=== PATIENT | female | born 1975 | race Caucasian/White ===

== ENCOUNTER 2017-02-18 15:38 | Inpatient (IN) | payer BC, OTHER ==
[~2017-02-18] VITALS: Ht 149.9 cm; Wt 50.8 kg
--- NOTE | 2017-02-18 19:57 | NUR ---
PRE-ADMISSION 41 year old female client in intake office admitted for medically supervised ETOH withdrawals. Pt brought into the office via wheelchair. Pt is intoxicated and states she drank 750ml of Vodka 40 minutes prior to coming to our setting. Denies medical hx, denies seizure hx, denies home medications. Pt states "I do not feel well, I am just very drunk." V/S are as follows, 97.9, 134/75, 112 heart rate, RR 20, SpO2 is 95% room air. Pt looks disheveled, but is able to answer questions. Will be monitored by night nurse.
[2017-02-18 20:00] VITALS: BP 134/75
[2017-02-18 20:13] VITALS: BP 134/75
[2017-02-18] MEDS ORDERED: DICYCLOMINE HCL 20 MG TABLET PO PRN (20:15)
[2017-02-18] MEDS ORDERED: ACETAMINOPHEN 325 MG TABLET PO PRN (20:15)
[2017-02-18] MEDS ORDERED: THIAMINE HCL 200 MG/2 ML VIAL IM ONE (20:15)
[2017-02-18] MEDS ORDERED: ONDANSETRON 4 MG/2 ML VIAL IM PRN (20:15)
[2017-02-18] MEDS ORDERED: MAG HYDROX/AL HYDROX/SIMETH 30 ML LIQUID UDC PO PRN (20:15)
[2017-02-18] MEDS ORDERED: LORAZEPAM 1 MG TABLET PO PRN ×2 (20:15)
[2017-02-18] MEDS ORDERED: LORAZEPAM 2 MG/1 ML VIAL IM PRN (20:15)
[2017-02-18] MEDS ORDERED: diphenhydrAMINE 50 MG CAPSULE PO PRN (20:15)
[2017-02-18] MEDS ORDERED: LOPERAMIDE HCL 2 MG CAPSULE PO PRN ×2 (20:15)
[2017-02-18] MEDS ORDERED: MAGNESIUM HYDROXIDE 30 ML LIQUID UDC PO PRN (20:15)
[2017-02-18] MEDS ORDERED: MIRALAX 17 GM POWD.PACK PO PRN (20:15)
[2017-02-18] MEDS ORDERED: CLONIDINE HCL 0.1 MG TABLET PO PRN (20:30)
[2017-02-18 20:47] LABS: BASOPHILS % (AUTO) 0.5 % (0.0-2.0); EOSINOPHILS % (AUTO) 0.3 % (0.0-7.0); HEMATOCRIT 43.3 % (37-47); HEMOGLOBIN 14.6 G/DL (12.0-16.0); LYMPHOCYTES # (AUTO) 1.8 K/UL (0.8-4.8); LYMPHOCYTES % (AUTO) 18.8 % (20.5-51.5); MEAN CORPUSCULAR HEMOGLOBIN 31.4 UUG (27.0-31.0); MEAN CORPUSCULAR HGB CONC 34 g/dL (32.0-37.0); MEAN CORPUSCULAR VOLUME 93.3 FL (81.0-99.0); MONOCYTES # (AUTO) 0.6 K/UL (0.1-1.30); MONOCYTES % (AUTO) 6.4 % (0.0-11.0); NEUTROPHILS # (AUTO) 7.3 K/UL (1.8-8.9); PLATELET COUNT (AUTO) 199 K/UL (150-450); RED BLOOD CELL COUNT(AUTO) 4.64 MIL/UL (4.2-5.4); WHITE BLOOD COUNT (AUTO) 9.7 K/UL (4.0-11.2)
[2017-02-18 20:57] LABS: *URINE HCG, QUAL NEGATIVE (NEGATIVE)
[2017-02-18 20:59] LABS: BILIRUBIN,TOTAL 0.6 mg/dL (0.2-1.0); CREATININE 0.7 mg/dL (0.6-1.3); MAGNESIUM 1.8 mg/dL (1.8-2.4); POTASSIUM 3.4 mmol/L (3.5-5.1); TOTAL PROTEIN, SERUM 7.6 g/dL (6.4-8.2)
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
[2017-02-18 21:10] LABS: THYROID STIMULATING HORMONE 1.211 mIU/mL (0.358-3.740)
[2017-02-18] MEDS: ONDANSETRON ODT 4 MG TAB.RAPDIS SL PRN (21:25)
--- NOTE | 2017-02-18 21:26 | NUR ---
PRN Medication Reassessment patient noted in her room, awake, and verbally responsive. patient is able to verbalize "I feel a little bit better but still feel shaky. I dont feel like I have to throw up anymore." CIWA noted to be 4. Patient verbalizing of going out to smoke a cigarette and then come back up to go to sleep. PRN Ativan 2mg and PRN Zofran noted to be effective.
[2017-02-18 21:30] LABS: *AMPHETAMINE, URINE NEGATIVE (NEGATIVE); *CANNABINOID, URINE NEGATIVE (NEGATIVE); *COCCAINE, URINE NEGATIVE (NEGATIVE); *OPIATE, URINE NEGATIVE (NEGATIVE); *PHENCYCLIDINE SCREEN,URINE NEGATIVE (NEGATIVE)
[2017-02-18] MEDS ORDERED: POTASSIUM CHLORIDE 20 MEQ TAB.PRT.SR PO ONE (21:30)
[2017-02-18] MEDS ORDERED: ONDANSETRON ODT 4 MG TAB.RAPDIS ONE (21:32)
[2017-02-18] MEDS ORDERED: LORAZEPAM 1 MG TABLET ONE (21:33)
[2017-02-18 21:42] LABS: *BARBITURATE, URINE NEGATIVE (NEGATIVE)
--- NOTE | 2017-02-18 21:50 | NUR ---
KDUR Supplemented Patient noted with new order for Kdur 40meq x1 dose do to abnormal labs. Medication administered and patient able to tolerate well. Will continue to monitor.
[2017-02-18 22:14] VITALS: BP 130/84
[2017-02-19 00:10] VITALS: BP 91/63
[2017-02-19 04:00] VITALS: BP 107/65
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
--- NOTE | 2017-02-19 07:24 | NUR ---
Start of Shift Notes: Received patient in her room. Alert and oriented x 4. Verbally responsive. Able to make needs known. Patient appears anxious and tremulous. Verbalizes anxiety. Respirations even and unlabored. No SOB noted. Skin warm and moist to touch. Sweating observed. Facial flushing noted. Abdomen soft and non-distended. No complains of diarrhea or abdominal discomfort noted. Noted with x 2 episodes of nausea and vomiting. Unable to tolerated PO intake at this time. Bladder non-distended. No complains of dysuria noted. Ambulatory ad mabel with steady gait. Gross tremors noted to BUE. Patient is a 41 year old female admitted for ETOH dependence who was placed on PRNs at this time. Has past medical hx of anorexia. Prior to admission, patient was using 750cc of Vodka x 2 days. Educated patient on her current plan of care for the day and her medication regimen. Encouraged oral fluid intake and encouraged group participation to learn new skills to prevent relapse. Noted with CIWA 15. Notified
[2017-02-19] MEDS: MULTIVITAMINS,THERAPEUTIC TABLET PO SCH (07:55)
[2017-02-19] MEDS: THIAMINE HCL 100 MG TABLET PO SCH (07:55)
[2017-02-19] MEDS: IBUPROFEN 400 MG TABLET PO PRN ×2 (07:55→20:16)
--- NOTE | 2017-02-19 07:55 | NUR ---
Early med administration/Ativan 1mg/Zofran 4/Ibuprofen 400/Clonidine 0.1 PO given: Patient's CIWA 15. Noted with nausea, vomiting, headache, gross tremors, anxiety, agitation. Denies S/I or H/I. Denies AV hallucinations. MD Klein aware. Per , ok to give Ativan 1 mg PO from PRN dose and OK to administer 0900 meds now.
[2017-02-19] MEDS: FOLIC ACID 1 MG TABLET PO SCH (07:56)
[2017-02-19] MEDS: ONDANSETRON ODT 4 MG TAB.RAPDIS SL PRN (07:56)
[2017-02-19 08:00] VITALS: BP 104/71
--- NOTE | 2017-02-19 08:55 | NUR ---
Re-assessment: CIWA 10. Patient continues with gross tremors, anxiety, sweating and mild nausea. Notified Dr. Klein and will enter in orders at this time.
[2017-02-19] MEDS ORDERED: TUBERCULIN,PURIF.PROT.DERIV. 5 TU/0.1 ML TEST ID ONE (09:00)
[2017-02-19] MEDS: LORAZEPAM 1 MG TABLET PO SCH ×4 (09:43→20:15)
--- NOTE | 2017-02-19 09:56 | NUR ---
Taper initiated: First dose of 5-day Ativan taper started at this time. CIWA 10. Will continue to monitor the patient and provide support. Safety precautions in place. Call light in reach.
[2017-02-19] MEDS ORDERED: PANTOPRAZOLE SODIUM 40 MG TABLET.DR PO ONE (11:00)
--- NOTE | 2017-02-19 11:30 | NUR ---
New orders: New orders received from MD to start patient on IV NS at 120cc/hr and x 1 PO Protonix for GI upset. Patient continues to complain of nausea and is unable to tolerate PO intake at this time. Appetite remains poor.
[2017-02-19 12:00] VITALS: BP 123/70
--- NOTE | 2017-02-19 12:00 | NUR ---
IV inserted: IV access obtained on patient's left hand via aseptic technique. Attempted x 1 with good blood return. Patient tolerated well. IV site to left hand patent and intact. Flushed adequately per unit protocol. Utlized 22g. No signs of infiltration noted. Tourniquet released. Explained all procedures to the patient prior to doing so.
[2017-02-19] MEDS: IV NS 1000 ML 1,000 ML IV PRN (12:27)
--- NOTE | 2017-02-19 12:27 | NUR ---
IVF intitated: IVF of NS at 120cc/hr started at this time. Assessed IV site prior to starting IVF. No s/s of infiltration noted. Education provided to the patient.
[2017-02-19 16:00] VITALS: BP 110/79
--- NOTE | 2017-02-19 18:54 | NUR ---
End of Shift: Patient continues to be on 5-day Ativan taper as ordered. No adverse reactions noted. VS monitored closely q 4 hours. No significant abnormalities noted. Withdrawal symptoms were closely monitored. Initial CIWA 15, patient presented with anxiety, agitation, chills, sweats, gross tremors. Medicated patient with PRN Ativan 1 mg at 0755 with Zofran 4 mg ODT, Clonidine 0.1mg PO, Motrin 400 mg PO as ordered. Patients taper was initiated at 0956. On IVF of NS at 120cc/hr to left forearm for hydration. Last CIWA 6. Per patient, Ativan has been helping her with her withdrawal symptoms. On fall and seizure precautions. Call light kept in reach. Unable to participate in group due to her withdrawal symptoms. All needs met and attended. Will continue to monitor closely.
--- NOTE | 2017-02-19 19:15 | NUR ---
Start of Shift Note: Patient is a 41 y/o female admitted on 02/18/17 for ETOH dependence. Patient reported relapsing and was binge drinking for 2 days. Patient reported consuming 750ml of Vodka for 2 days. Patient have anorexia. Patient is on a regular diet with allergies to strawberries. Full Code status. No seizure history noted. Patient started on a 5-day Ativan taper and tolerating well. Last CIWA is 6. Pt was given PRN Clonidine, Motrin, Zofarn and one time dose of Ativan 1mg during day shift. Patient has 22 gauge IV access on left hand patent and intact with running NS @ 120 cc/hr. Patient denies any discomfort on IV site. Patient is alert & oriented x4. No shortness of breath noted. Respiration even & unlabored. Abdomen soft & non-distended. No nausea noted. Patient presented with sweating, mild headache & anxiety. Bilateral hand tremors noted. Patient denies hallucinations. Safety precautions are in place. Bed locked in lowest position. Both side rails up. Call light within pt's reach. Will continue to monitor patient.
[2017-02-19 20:00] VITALS: BP 115/75
--- NOTE | 2017-02-19 20:16 | NUR ---
PRN Motrin Patient complains of mild headache. PRN Motrin administered as ordered. Will reassess for effectiveness of medication.
--- NOTE | 2017-02-19 21:16 | NUR ---
PRN Reassessment Patient verbalized effectiveness of medication. Pt denies headache at this time. Will continue to monitor.
--- NOTE | 2017-02-19 22:10 | NUR ---
PRN Benadryl Patient requested medication to help her sleep. PRN Benadryl administered as ordered. Will continue to monitor patient.
--- NOTE | 2017-02-19 23:10 | NUR ---
PRN REassessment Patient asleep in bed and appears comfortable. No s/s of distress noted. Safety measures in place. Will continue to monitor patient.
[2017-02-20] VITALS: BP 102/63
[2017-02-20] MEDS: IV NS 1000 ML 1,000 ML IV PRN (00:41)
--- NOTE | 2017-02-20 04:00 | NUR ---
Vitals/Ciwa deferred Patient refused vitals at this time. Patient asleep in bed and appears comfortable. No s/s of distress noted. Unable to assess CIWA at this time. Will continue to monitor patient.
[2017-02-20] MEDS ORDERED: PANTOPRAZOLE SODIUM 40 MG TABLET.DR PO SCH (07:00)
--- NOTE | 2017-02-20 07:20 | NUR ---
End of Shift Note: Pt had an uneventful night. Patient continues receiving fluids of NS @ 120 cc/hr for hydration. Patient denies any discomfort on IV site. Pt on 5-day Ativan taper and tolerating well. Pt reported that medication is effective in decreasing her withdrawal symptoms. Pt remained stable and vitals remains WNL. Pt was given PRN Motrin for headache and Benadryl for sleep and were effective. Pt remained compliant with medications and treatment plan. Last CIWA is 3. Pt still asleep at this time with no s/s of distress noted. Pt was able to sleep for a total of 7 hours. Consumed 500 ml of fluids. Voided 1x with no bowel movement. All needs attended met. Safety measures in place. Will endorse pt to day shift nurse.
[2017-02-20 08:00] VITALS: BP 102/63
[2017-02-20 08:27] LABS: CREATININE 0.8 mg/dL (0.6-1.3); MAGNESIUM 1.5 mg/dL (1.8-2.4); PHOSPHOROUS 2.3 mg/dL (2.5-4.9); POTASSIUM 3.7 mmol/L (3.5-5.1)
--- NOTE | 2017-02-20 08:30 | NUR ---
Start of Shift Notes: Received patient in her room. Alert and oriented x 4. Verbally responsive. Able to make needs known. Patient appears anxious and tremulous. Verbalizes anxiety. Respirations even and unlabored. No SOB noted. Skin warm and moist to touch. Abdomen soft and non-distended. No complains of diarrhea or abdominal discomfort noted. Bladder non-distended. No complains of dysuria noted. Ambulatory ad mabel with steady gait. Gross tremors noted to BUE. IV site to left hand intact. No s/s of infiltration noted. Patient is a 41 year old female admitted for ETOH dependence who was placed on PRNs at this time. Has past medical hx of anorexia. Prior to admission, patient was using 750cc of Vodka x 2 days. Educated patient on her current plan of care for the day and her medication regimen. Encouraged oral fluid intake and encouraged group participation to learn new skills to prevent relapse.
[2017-02-20] MEDS: FOLIC ACID 1 MG TABLET PO SCH (08:58)
[2017-02-20] MEDS: THIAMINE HCL 100 MG TABLET PO SCH (08:58)
[2017-02-20] MEDS: LORAZEPAM 1 MG TABLET PO SCH ×3 (08:58→20:43)
[2017-02-20] MEDS: MULTIVITAMINS,THERAPEUTIC TABLET PO SCH (09:00)
--- NOTE | 2017-02-20 09:27 | NUR ---
MVI not administered: Patient refused MVI at 0900. Educated patient on the risk and the benefits but still refused. Patient states "It makes me feel sick." Education provided. Will continue to offer support and reassurance. MD made aware.
--- NOTE | 2017-02-20 10:27 | NUR ---
MD Communication: Labs: Relayed patient's abnormal labs to MD Klein especially Mag leve of 1.5L. Per MD, he will enter in orders. Orders noted and carried out.
[2017-02-20] MEDS ORDERED: MAGNESIUM OXIDE 400 MG TABLET PO ONE ×2 (10:45→21:00)
[2017-02-20] MEDS ORDERED: NEUTRA PHOS PACKET PO ONE (10:45)
[2017-02-20] MEDS ORDERED: POTASSIUM CHLORIDE 20 MEQ TAB.PRT.SR PO ONE (10:45)
[2017-02-20 12:00] VITALS: BP 105/72
--- NOTE | 2017-02-20 12:23 | NUR ---
Therapist prompted clients about group times. Client reported she will attend all groups today.
--- NOTE | 2017-02-20 13:00 | NUR ---
IV Dc'd: MD ISRAEL'ara patient's IV access site and orders. Pressure applied x x2 minutes to IV insertion site. No s/s of infection noted. Patient tolerated well.
[2017-02-20 14:08] LABS: HEPATITIS B SURFACE AG Negative (Negative)
[2017-02-20] MEDS: GABAPENTIN 300 MG CAPSULE PO SCH ×2 (14:09→20:43)
[2017-02-20 16:00] VITALS: BP 124/82
--- NOTE | 2017-02-20 18:44 | NUR ---
End of Shift: Patient continues to be on 5-day Ativan taper as ordered. No adverse reactions noted. VS monitored closely q 4 hours. No significant abnormalities noted. Withdrawal symptoms were closely monitored. Initial CIWA 7, patient presented with anxiety, agitation, sweats, gross tremors. Last CIWA 4. Per patient, Ativan has been helping her with her withdrawal symptoms. IV site to left hand dcd today. Replaced K, Mag and Phosphorus as ordered. No s/s of electrolyte imbalance noted. On fall and seizure precautions. Call light kept in reach. Unable to participate in group due to her withdrawal symptoms. All needs met and attended. Will continue to monitor closely.
--- NOTE | 2017-02-20 19:15 | NUR ---
Start of Shift Note: Patient is a 41 y/o female admitted on 02/18/17 for ETOH dependence. Patient reported relapsing and was binge drinking for 2 days. Patient reported consuming 750ml of Vodka for 2 days. Patient have anorexia. Patient is on a regular diet with allergies to strawberries. Full Code status. No seizure history noted. Patient started on a 5-day Ativan taper and tolerating well. Last CIWA is 4. No PRN medications given during day shift. IV discontinued during day shift per MD's order. Patient able to tolerate PO intake. Patient is alert & oriented x4. No shortness of breath noted. Respiration even & unlabored. Abdomen soft & non-distended. No nausea noted. Hand tremors felt but not seen. Patient denies hallucinations. Safety precautions are in place. Bed locked in lowest position. Both side rails up. Call light within pt's reach. Will continue to monitor patient.
[2017-02-20 20:00] VITALS: BP 107/67
[2017-02-20] MEDS: CLONIDINE HCL 0.1 MG TABLET PO SCH (20:44)
[2017-02-21] VITALS: BP 102/65
[2017-02-21 04:00] VITALS: BP 102/65
--- NOTE | 2017-02-21 07:27 | NUR ---
End of Shift Note: Pt had an uneventful night. Pt continues on a 5-day Ativan taper and tolerating well. Pt reported that medication is effective in decreasing her withdrawal symptoms. Pt remained stable and vitals remains WNL. Pt did not received any PRN medications. Pt remained compliant with medications and treatment plan. Last CIWA is 3. Pt still asleep at this time with no s/s of distress noted. Pt was able to sleep for a total of 8 hours. Consumed 1151 ml of fluids. Voided 2x with no bowel movement. All needs attended met. Safety measures in place. Will endorse pt to day shift nurse.
--- NOTE | 2017-02-21 07:45 | NUR ---
START OF SHIFT Rcvd endorsement from ongoing nurse, client is a 41 y/o admitted for alcohol withdrawal, She is placed on 5 day Ativan taper (3rd day, last CIWA 3 @ 2000. She had an uneventful night, she slept 8 hrs. Client is in bed, a/o x4. she presents with anxious mood, flat affect, she stated "I feel like I'm crawling out of my skin." Client appears irritable, skin warm and moist to touch, abdomen soft, nontender, quadrant x 4 active. Encourage client to increase fluid intake to facilitate detox and to attend group therapy for skills to maintain sobriety. Denied history of withdrawal induced seizures. Client is on seizure precautions. Allergies to strawberries, full code, regular diet. Call light within reach. Side rails x 2 up/padded. Will continue to monitor.
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
[2017-02-21 08:35] LABS: CREATININE 0.6 mg/dL (0.6-1.3); MAGNESIUM 1.7 mg/dL (1.8-2.4); PHOSPHOROUS 3.6 mg/dL (2.5-4.9); POTASSIUM 3.6 mmol/L (3.5-5.1)
[2017-02-21] MEDS: CLONIDINE HCL 0.1 MG TABLET PO SCH (08:41)
[2017-02-21] MEDS: THIAMINE HCL 100 MG TABLET PO SCH (08:41)
[2017-02-21] MEDS: FOLIC ACID 1 MG TABLET PO SCH (08:41)
[2017-02-21] MEDS: GABAPENTIN 300 MG CAPSULE PO SCH (08:50)
[2017-02-21] MEDS: MULTIVITAMINS,THERAPEUTIC TABLET PO SCH (08:51)
[2017-02-21 08:56] VITALS: BP 123/71
[2017-02-21] MEDS ORDERED: LORAZEPAM 1 MG TABLET PO SCH (09:00)
--- NOTE | 2017-02-21 09:33 | NUR ---
MD Notification Dr. Klein notified of Magnesium 1.7, client is asymptomatic. Will follow up with new orders.
--- NOTE | 2017-02-21 10:00 | NUR ---
ENDORSEMENT Received endorsement of patient from NANCY Ortiz. Patient is alert and oriented. Patient a 41 years old, admitted for alcohol withdrawal, On 5-day Ativan tape, last CIWA: 6. Alert and oriented X4. All 0900 am meds given by previous RN. Patient denies any complaint during introduction. Will continue to monitor patient.
--- NOTE | 2017-02-21 10:00 | NUR ---
Endorsed to day shift nurse to continue care.
[2017-02-21] MEDS ORDERED: MAGNESIUM OXIDE 400 MG TABLET PO ONE (10:30)
--- NOTE | 2017-02-21 11:00 | NUR ---
MA NOTE: Patient left AMA, refused to comply with treatment. Patient was educated about the risks and consequences of leaving AMA, pt. verbalized understanding but was adamant about leaving. Multiple staff members including patient advocates, nurses attempted to reason with patient without any success. Patient denied any suicidal or homicidal ideations. Patient's MD was notified and spoke to patient. Patient was given a list of community resources, AMA forms explained and signed by patient. All belongings returned to patient. Patient has no home meds. Patient left at 11:00am.
[2017-02-22] MEDS ORDERED: LORAZEPAM 1 MG TABLET PO SCH (09:00)
[2017-02-23] MEDS ORDERED: LORAZEPAM 1 MG TABLET PO SCH (09:00)
== END 2017-02-21 11:00 | disposition left against medical advice (07) | DRG 894 ==
LOC: SRC 18:57
PROVIDERS: ADMIT Internal Medicine; ATTEND Internal Medicine
PROC: HZ2ZZZZ Detoxification Services for Substance Abuse Treatment (ICD-10-PCS; principal; 2017-02-18)
PROC: HZ41ZZZ Group Counseling for Substance Abuse Treatment, Behavioral (ICD-10-PCS; 2017-02-20)
PROC: HZ31ZZZ Individual Counseling for Substance Abuse Treatment, Behavioral (ICD-10-PCS; 2017-02-20)
DX: F10.230 Alcohol dependence with withdrawal, uncomplicated (principal); Y90.9 Presence of alcohol in blood, level not specified; K70.10 Alcoholic hepatitis without ascites; J30.2 Other seasonal allergic rhinitis; Z83.3 Family history of diabetes mellitus; Z82.49 Family history of ischemic heart disease and other diseases of the circulatory system; Z81.1 Family history of alcohol abuse and dependence; Z80.9 Family history of malignant neoplasm, unspecified; F17.210 Nicotine dependence, cigarettes, uncomplicated; F50.9 Eating disorder, unspecified; E87.6 Hypokalemia; E83.42 Hypomagnesemia; E83.39 Other disorders of phosphorus metabolism; R73.9 Hyperglycemia, unspecified
CPT/HCPCS: 36415; 70030-TC; 80307; 83690; 83735; 84100; 84443; 84703; 85025; 86580; 86592; 86705; 86803; 87340; 87806; 93005; A4663; G0480; J3411; J7030; Q0162; Q0163